=== PATIENT | male | born 1945 | race Caucasian/White ===

== ENCOUNTER 2017-01-26 17:29 | Emergency (ER) | payer MEDICARE ==
[~2017-01-26] VITALS: Ht 170.2 cm; Wt 76.6 kg
[~2017-01-26 17:29] MED LIST: LISI-360 PO
[2017-01-26 17:32] VITALS: BP 134/81; PULSE 74; RESP 16; TEMP 98.1; O2SAT 95
[2017-01-26] MEDS ORDERED: LISI10TA3 PO (17:38)
[2017-01-26] MEDS ORDERED: TETANUS/DIPHTHERIA TOXOID ADULT 0.5 ML VIAL IM ONE (18:15)
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
== END 2017-01-26 19:05 | disposition home or self-care (01) ==
LOC: PHEFT 17:29
DX: S00.212A Abrasion of left eyelid and periocular area, initial encounter (principal); Z23 Encounter for immunization; Z86.73 Personal history of transient ischemic attack (TIA), and cerebral infarction without residual deficits; I10 Essential (primary) hypertension; W22.8XXA Striking against or struck by other objects, initial encounter; Y92.89 Other specified places as the place of occurrence of the external cause; Y99.8 Other external cause status
CPT/HCPCS: 70450; 90471; 90714

== ENCOUNTER 2017-02-02 22:06 | Emergency (ER) | payer OTHER, MEDICARE ==
[~2017-02-02] VITALS: Ht 167.6 cm; Wt 79.3 kg
[~2017-02-02 22:06] MED LIST changes: -LISI-360 PO; +LISI10TA3 PO
[2017-02-02 22:18] VITALS: BP 158/83; PULSE 58; RESP 12; TEMP 98.5; O2SAT 98
[2017-02-02 22:39] VITALS: BP 154/70; PULSE 60; RESP 18; TEMP 98.5; O2SAT 98
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
[2017-02-02] MEDS ORDERED: ACETAMINOPHEN 325 MG TAB PO ONE (23:00)
[2017-02-02 23:18] LABS: AUTOMATED NEUTROPHIL # 3.6 TH/MM3 (1.8-7.7); BASOPHIL # 0.1 TH/MM3 (0-0.2); BASOPHIL % 0.7 % (0.0-2.0); EOSINOPHIL # 0.3 TH/MM3 (0-0.4); EOSINOPHIL % 4.1 % (0.0-4.0); HEMATOCRIT 41.2 % (39.0-51.0); HEMO FLAGS DIFF FINAL; LYMPH % 37.4 % (9.0-44.0); LYMPHOCYTE # 2.7 TH/MM3 (1.0-4.8); MEAN CORPUSCULAR HEMOGLOBIN 28.1 PG (27.0-34.0); MEAN CORPUSCULAR HGB CONC 33.5 % (32.0-36.0); MONO % 7.6 % (0.0-8.0); NEUT % 50.2 % (16.0-70.0); PLATELET COUNT 212 TH/MM3 (150-450); RED BLOOD COUNT 4.91 MIL/MM3 (4.50-5.90); RED CELL DISTRIBUTION WIDTH 12.6 % (11.6-17.2); WHITE BLOOD COUNT 7.2 TH/MM3 (4.0-11.0)
[2017-02-02 23:23] LABS: POTASSIUM 4.5 MEQ/L (3.5-5.1)
[2017-02-02 23:26] LABS: BICARBONATE 29.7 MEQ/L (21.0-32.0)
[2017-02-03 00:01] LABS: BLOOD, URINE NEG (NEG); GLUCOSE,URINE NEG (NEG); KETONE, URINE NEG (NEG); NITRITE,URINE NEG (NEG); PH, URINE 5.5 (5.0-8.5)
[2017-02-03 00:03] LABS: URINE COLOR STRAW (YELLW/STRAW)
[2017-02-03 00:06] LABS: BACTERIA, URINE RARE /hpf; COMMENT (UR) CULTURE INDICATED; CULTURE IF INDICATED CULTURE INDICATED; RBC, URINE 0-3 /hpf (0-3); SQUAMOUS EPITHELIAL CELL URINE 0-5 /hpf (0-5)
[2017-02-03] MEDS ORDERED: BACT800T5 PO (00:12)
[2017-02-03 00:16] VITALS: BP 146/71; PULSE 63; RESP 18; O2SAT 98
[2017-02-03] MEDS ORDERED: SULFAMETHOXAZOLE-TRIMETHOPRIM DS 800-160 MG TAB PO ONE (00:30)
== END 2017-02-03 00:32 | disposition home or self-care (01) ==
LOC: PHED 22:06
DX: N30.00 Acute cystitis without hematuria (principal); R51 Headache; M54.2 Cervicalgia; I10 Essential (primary) hypertension; Z85.46 Personal history of malignant neoplasm of prostate; Z86.79 Personal history of other diseases of the circulatory system; Z87.448 Personal history of other diseases of urinary system; Z86.69 Personal history of other diseases of the nervous system and sense organs
CPT/HCPCS: 80048; 81001; 85025; 87086; 99284

== ENCOUNTER 2017-12-11 11:26 | Emergency (ER) | payer MEDICARE ==
[~2017-12-11] VITALS: Ht 170.2 cm; Wt 78.8 kg
[~2017-12-11 11:26] MED LIST changes: +BACT800T5 PO
[2017-12-11 11:28] VITALS: BP 129/65; PULSE 69; RESP 18; TEMP 100; O2SAT 97
[2017-12-11] MEDS ORDERED: SODIUM CHLORIDE 0.9% FLUSH 10 ML FLUSH IVF PRN (12:30)
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
[2017-12-11 12:42] LABS: AUTOMATED NEUTROPHIL # 3.5 TH/MM3 (1.8-7.7); BASOPHIL % 0.6 % (0.0-2.0); EOSINOPHIL % 0.2 % (0.0-4.0); HEMATOCRIT 41.6 % (39.0-51.0); HEMOGLOBIN 13.8 GM/DL (13.0-17.0); LYMPH % 27.7 % (9.0-44.0); LYMPHOCYTE # 1.8 TH/MM3 (1.0-4.8); MEAN CELL VOLUME 83.3 FL (80.0-100.0); MEAN CORPUSCULAR HEMOGLOBIN 27.8 PG (27.0-34.0); MEAN CORPUSCULAR HGB CONC 33.3 % (32.0-36.0); MONO % 17.8 % (0.0-8.0); MONOCYTE # 1.1 TH/MM3 (0-0.9); NEUT % 53.7 % (16.0-70.0); PLATELET COUNT 208 TH/MM3 (150-450); RED BLOOD COUNT 4.99 MIL/MM3 (4.50-5.90); WHITE BLOOD COUNT 6.4 TH/MM3 (4.0-11.0)
[2017-12-11 12:51] LABS: CHLORIDE 103 MEQ/L (98-107); SODIUM (NA) 135 MEQ/L (136-145)
[2017-12-11 12:53] LABS: CALCIUM 7.9 MG/DL (8.5-10.1)
[2017-12-11 12:54] LABS: BLOOD UREA NITROGEN 17 MG/DL (7-18); GLUCOSE,RANDOM 100 MG/DL (74-106)
[2017-12-11 12:55] LABS: PROTHROMBIN TIME - PATIENT 10.6 SEC (9.8-11.6)
[2017-12-11 12:57] LABS: GLOMERULAR FILTRATION RATE 54 ML/MIN (>89)
[2017-12-11 12:58] VITALS: BP_SYST 115; BP_SYST 116; BP_DIAS 63; BP_DIAS 64; PULSE 58; RESP 16; O2SAT 94
[2017-12-11 13:02] LABS: TROPONIN I LESS THAN 0.02 NG/ML (0.02-0.05)
--- NOTE | 2017-12-11 13:04 | RADRPT ---
EXAM DATE/TIME: 12/11/2017 12:42 [facility] COMPARISON: No previous studies available for comparison. INDICATIONS : Chest pain today. MEDICAL HISTORY : Hypertension. Carcinoma, prostate. Cerebrovascular disease SURGICAL HISTORY : None. ENCOUNTER: Initial ACUITY: 1 day PAIN SCORE: 4/10 LOCATION: Bilateral chest FINDINGS: PA and lateral views of the chest demonstrate the lungs to be symmetrically aerated without evidence of mass, infiltrate or effusion. The cardiomediastinal contours are unremarkable. Retrocardiac dens ity. Osseous structures are intact. CONCLUSION: 1. No infiltrates. 2. Retrocardiac density likely hiatal hernia. Esequiel Bray MD on December 11, 2017 at 13:02 Board Certified Radiologist. This report was verified electronically.
[2017-12-11] MEDS ORDERED: BENZ100 PO (13:35)
[2017-12-11] MEDS ORDERED: AZIT250T3 PO (13:35)
[2017-12-11 13:43] VITALS: BP 123/66; PULSE 64; RESP 16; O2SAT 97
[2017-12-11] MEDS ORDERED: CALCIUM CARBONATE 500 MG CHEWABLE TAB CHEW ONE (14:00)
--- NOTE | 2017-12-12 20:56 | EKG ---
Date Performed: 12/11/2017 Time Performed: 12:26:38 PTAGE: 72 years EKG: Sinus rhythm INCOMPLETE RIGHT BUNDLE BRANCH BLOCK BORDERLINE ECG PREVIOUS TRACING : 06/19/2013 16.00 Since the previous tracing, no significant change noted DOCTOR: Rowdy Kapoor Interpretating Date/Time 12/12/2017 20:55:39
== END 2017-12-11 13:56 | disposition left against medical advice (07) ==
LOC: PHEFT 11:26
DX: R07.9 Chest pain, unspecified (principal); J40 Bronchitis, not specified as acute or chronic; M54.9 Dorsalgia, unspecified; R50.9 Fever, unspecified; R94.31 Abnormal electrocardiogram [ECG] [EKG]; I10 Essential (primary) hypertension; Z53.29 Procedure and treatment not carried out because of patient's decision for other reasons; Z79.899 Other long term (current) drug therapy; Z85.46 Personal history of malignant neoplasm of prostate; Z86.73 Personal history of transient ischemic attack (TIA), and cerebral infarction without residual deficits; Z87.448 Personal history of other diseases of urinary system
CPT/HCPCS: 71046; 80048; 82550; 82552; 83735; 84484; 85025; 85610; 85730; 87804; 93005; 99285

== ENCOUNTER 2017-12-19 12:11 | Emergency (ER) | payer MEDICARE ==
[~2017-12-19 12:11] MED LIST changes: +AZIT250T3 PO; -BACT800T5 PO; +BENZ100 PO
[2017-12-19 12:34] VITALS: BP 144/59; PULSE 59; RESP 16; TEMP 97.1; O2SAT 100
--- NOTE | 2017-12-19 14:01 | RADRPT ---
EXAM DATE/TIME: 12/19/2017 13:41 [facility] COMPARISON: CHEST PA & LAT, December 11, 2017, 12:42. INDICATIONS : Cough. Patient complains of chest pain, nausea and vomiting. MEDICAL HISTORY : Hypertension. Carcinoma, prostate. Cerebrovascular disease SURGICAL HISTORY : None. ENCOUNTER: Initial ACUITY: 1 week PAIN SCORE: 0/10 LOCATION: Bilateral chest FINDINGS: PA and lateral views of the chest demonstrate the lungs to be symmetrically aerated without evidence of mass, infiltrate or effusion. The cardiomediastinal contours are unremarkable. Osseous structure s are intact. There is stable scoliosis with curvature of the thoracic spine to the right. CONCLUSION: No acute disease. No significant change has occurred. Kyle Barlow MD on December 19, 2017 at 13:59 Board Certified Radiologist. This report was verified electronically.
[2017-12-19 15:00] LABS: AUTOMATED NEUTROPHIL # 3.5 TH/MM3 (1.8-7.7); BASOPHIL % 0.3 % (0.0-2.0); EOSINOPHIL % 0.2 % (0.0-4.0); HEMATOCRIT 42.1 % (39.0-51.0); HEMOGLOBIN 14.9 GM/DL (13.0-17.0); LYMPH % 28.4 % (9.0-44.0); LYMPHOCYTE # 1.6 TH/MM3 (1.0-4.8); MEAN CELL VOLUME 81.8 FL (80.0-100.0); MEAN CORPUSCULAR HGB CONC 35.4 % (32.0-36.0); MEAN PLATELET VOLUME 8.6 FL (7.0-11.0); MONO % 10.9 % (0.0-8.0); MONOCYTE # 0.6 TH/MM3 (0-0.9); NEUT % 60.2 % (16.0-70.0); PLATELET COUNT 227 TH/MM3 (150-450); RED BLOOD COUNT 5.14 MIL/MM3 (4.50-5.90); RED CELL DISTRIBUTION WIDTH 13.4 % (11.6-17.2); WHITE BLOOD COUNT 5.8 TH/MM3 (4.0-11.0)
[2017-12-19 15:21] LABS: BICARBONATE 24.7 MEQ/L (21.0-32.0); CALCIUM 8.9 MG/DL (8.5-10.1); CREATININE 0.97 MG/DL (0.60-1.30)
[2017-12-19] MEDS ORDERED: SODIUM CHLOR 0.9% 1000 ML INJ 1,000 ML IV SCH (16:54)
[2017-12-19 17:00] VITALS: BP 150/74; PULSE 56; RESP 19; O2SAT 97
[2017-12-19] MEDS ORDERED: SODIUM CHLORIDE 0.9% FLUSH 10 ML FLUSH IV FLUSH PRN (17:00)
[2017-12-19 17:03] VITALS: O2SAT 97
[2017-12-19 17:38] LABS: AMORPHOUS SEDIMENT, URINE RARE; BILIRUBIN, URINE NEG (NEG); BLOOD, URINE SMALL (NEG); GLUCOSE,URINE NEG (NEG); KETONE, URINE 10 mg/dL (NEG); MUCUS URINE FEW /lpf (OCC); NITRITE,URINE POS (NEG); URINE COLOR YELLOW (YELLW/STRAW); URINE LEUKOCYTE ESTERASE MOD (NEG)
[2017-12-19] MEDS ORDERED: ZOFR4TAB3 SL (18:10)
[2017-12-19] MEDS ORDERED: NITR100C4 PO (18:10)
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
[2017-12-19 19:31] LABS: ALBUMIN 3.3 GM/DL (3.4-5.0); DIRECT BILIRUBIN ADULT 0.2 MG/DL (0.0-0.2)
[2017-12-19 19:33] LABS: INDIRECT BILIRUBIN 0.7 MG/DL (0.0-0.8); TOTAL BILIRUBIN ADULT 0.9 MG/DL (0.2-1.0); TOTAL PROTEIN 7.3 GM/DL (6.4-8.2)
--- NOTE | 2017-12-20 14:19 | EKG ---
Date Performed: 12/19/2017 Time Performed: 17:09:00 PTAGE: 72 years EKG: SINUS BRADYCARDIA MODERATE VOLTAGE CRITERIA FOR LVH, CONSIDER NORMAL VARIANT BORDERLINE ECG Compared to PREVIOUS TRACING , QRS voltage has increased. PREVIOUS TRACIN12/11/2017 12.26 DOCTOR: Lele Pacheco Interpretating Date/Time 12/20/2017 14:17:43
== END 2017-12-19 19:35 | disposition home or self-care (01) ==
LOC: NEPC 12:11
DX: N39.0 Urinary tract infection, site not specified (principal); R31.9 Hematuria, unspecified; I10 Essential (primary) hypertension; R05 Cough; R00.1 Bradycardia, unspecified
CPT/HCPCS: 71046; 80048; 80076; 81001; 83690; 84484; 85025; 87086; 87804; 93005; 99285; J7030